=== PATIENT | female | born 1985 | race Caucasian/White ===

== ENCOUNTER 2016-08-22 19:03 | Emergency (ER) | payer MEDICAID ==
[~2016-08-22] VITALS: Ht 152.4 cm; Wt 45.5 kg
[~2016-08-22 19:03] MED LIST: BENA5TAB2 PO; CALC-600 PO; CALC600T PO; CALC600T5 PO; FERR-55 PO; FERR325C PO; HEPARIN SQ; PRED-248 PO; PREN1TAB31 PO; PREN1TAB9 PO; VITAMIN D-2 PO; ZOC10 PO
[2016-08-22 20:30] VITALS: Ht 152.4 cm; Wt 45.5 kg
[2016-08-22] MEDS ORDERED: ACYC800T57 PO (20:42)
[2016-08-22] MEDS ORDERED: HYDR-906 PO (20:42)
[2016-08-22] MEDS ORDERED: HYDR-3011 PO (20:42)
--- NOTE | 2016-08-22 20:46 | ERD ---
ER Documentation Chief Complaint Date/Time DATE: 08/22/16 TIME: 20:44 Chief Complaint rash on upper chest/near right axillary areas since Monday,burning/chills HPI 31-year-old female presents to emergency department for complaints of rash in the right upper chest area radiating to the right axillary artery and right upper back area started 2 days ago. Patient is complaining of pain on affected area and blistering, throbbing pain, burning pain, 6/10 scale, is worse upon touching the area. Patient describes the rashes blisters. Patient took some Tylenol with mild relief. Patient denies any fever or chills. Patient denies any family members with the same type of rash. ROS All systems reviewed and are negative except as per history of present illness. Medications Home Meds Active Scripts Hydrocodone/Acetaminophen ([place] 5-325 Tablet) 1 Each Tablet, 1 TAB PO Q6H Y for SEVERE PAIN LEVEL 7-10, #20 TAB Prov:DORIS BISHOP NP 08/22/16 Hydroxyzine Hcl* (Hydroxyzine Hcl*) 25 Mg Tablet, 25 MG PO Q8H Y for ITCHING, # 30 TAB Prov:DORIS BISHOP NP 08/22/16 Acyclovir* (Zovirax*) 800 Mg Tablet, 800 MG PO 5 TIMES DAILY for 7 Days, TAB Prov:DORIS BISHOP [employer]GER CPA 08/22/16 Reported Medications [Heparin ] No Conflict Check, SQ BID 12/30/13 Calcium Carbonate (CALCIUM) 600 Mg Tablet, 600 MG PO DAILY 10/24/13 Vits W-Ca,Fe,Fa(<1MG) ( #2) 1 Tab Tablet, 1 TAB PO DAILY 10/24/13 Calcium Carbonate (Abel-600) 600 Mg Tablet, 600 MG PO DAILY 09/13/13 Ferrous Sulfate* (Ferrous Sulfate*) 325 Mg Tablet, 325 MG PO DAILY 09/13/13 Vits #90-Iron Fum-FA ( Formula) 1 Each Tablet, 1 EACH PO DAILY 09/13/13 Benazepril Hcl* (Benazepril Hcl*) 5 Mg Tablet, 2.5 MG PO DAILY 01/20/12 Prednisone (Prednisone) 10 Mg Tablet, 40 MG PO DAILY 01/20/12 Calcium (Calcium) 500 Mg Tablet, 500 MG PO BID 01/20/12 [Vitamin D-2] 22747 UNITS TAB No Conflict Check, 00578 UNITS PO MONTHLY 01/20/12 Simvastatin (Simvastatin) 10 Mg Tablet, 10 MG PO HS 01/20/12 Ferrous Sulfate (Iron) 325 Mg Capsr, 325 MG PO BID 01/20/12 Benazepril Hcl* (Benazepril Hcl*) 5 Mg Tablet, 2.5 MG PO DAILY 01/20/12 Prednisone (Prednisone) 10 Mg Tablet, 40 MG PO DAILY 01/20/12 Calcium (Calcium) 500 Mg Tablet, 500 MG PO BID 01/20/12 [Vitamin D-2] 42171 UNITS TAB No Conflict Check, [id number] UNITS PO MONTHLY 01/20/12 Simvastatin (Simvastatin) 10 Mg Tablet, 10 MG PO HS 01/20/12 Allergies Allergies: Coded Allergies: ibuprofen (Unverified Allergy, Unknown, 08/22/16) PMhx/Soc Medical and Surgical Hx: pt denies Medical Hx, pt denies Surgical Hx History of Surgery: No Anesthesia Reaction: No Hx Neurological Disorder: No Hx Respiratory Disorders: No Hx Cardiac Disorders: No Hx Psychiatric Problems: No Hx Miscellaneous Medical Probl: No Hx Alcohol Use: No Hx Substance Use: No Hx Tobacco Use: No FmHx Family History: No coronary disease, No diabetes, No other Physical Exam Vitals Vital Signs Date Time Temp Pulse Resp B/P Pulse Ox O2 Delivery O2 Flow Rate FiO2 08/22/16 20:30 97.8 77 20 128/74 100 Physical Exam GENERAL: The patient is well developed and appropriate for usual state of health, in no apparent distress. CHEST: Clear to auscultation bilaterally. There are no rales, wheezes or rhonchi. HEART: Regular rate and rhythm. No murmurs, clicks, rubs or gallops. No S3 or S4. ABDOMEN: Soft, nontender and nondistended. Good bowel sounds. No rebound or guarding. No gross peritonitis. No gross organomegaly or masses. No Galaviz sign or McBurney point tenderness. BACK: No midline or flank tenderness. EXTREMITIES: Equal pulses bilaterally. There is no peripheral clubbing, cyanosis or edema. No focal swelling or erythema. Full range of motion. Grossly neurovascularly intact. NEURO: Alert and oriented. Cranial nerves 2-12 intact. Motor strength in all 4 extremities with 5/5 strength. Sensation grossly intact. Normal speech and gait. SKIN: Noted vesicular rash on the level on the right T5 dermatome. There is no apparent ecchymosis or petechia. The skin is warm and dry. HEMATOLOGIC AND LYMPHATIC: There is no evidence of excessive bruising or lymphedema. No gross cervical, axillary, or inguinal lymphadenopathy. Procedures/MDM Medical decision making: Patient symptoms with most likely consistent with herpes zoster, shingles. Low suspicion for allergic reaction, coagulopathies. No symptoms of any acute dermatologic emergencies at this time. Patient was given prescription for acyclovir, [place], hydroxyzine, is advised to follow-up with primary care doctor to 3 days for reevaluation of symptoms. Patient was advised to return to emergency department for any worsening symptoms. Departure Diagnosis: Primary Impression: Shingles Herpes zoster complications: without complications Qualified Code: B02.9 - Herpes zoster without complication Condition: Stable Patient Instructions: Shingles (Herpes Zoster) DORIS BISHOP NP Aug 22, 2016 20:46
== END 2016-08-22 20:40 | disposition home or self-care (01) ==
LOC: E/R 19:03
DX: B02.9 Zoster without complications (principal)
CPT/HCPCS: 99282

== ENCOUNTER 2017-07-31 20:09 | Emergency (ER) | END 2017-08-01 01:10 | disposition left against medical advice (07) ==

== ENCOUNTER 2018-06-21 12:56 | Emergency (ER) | END 2018-06-21 15:00 | disposition home or self-care (01) ==

== ENCOUNTER 2018-09-03 16:11 | Emergency (ER) | payer SELFPAY ==
[~2018-09-03] VITALS: Ht 167.6 cm; Wt 40.0 kg
[~2018-09-03 16:11] MED LIST changes: +ACET500C5 PO; +ACYC800T5 PO; +AMOX1TAB10 PO; -BENA5TAB2 PO; +BENA5TAB33 PO; +FLUT16SP17 NASAL; +HYDR-4011 PO; +HYDR-843 PO
[2018-09-03 16:20] VITALS: BP 137/71; PULSE 106; RESP 20; Ht 167.6 cm; Wt 40.0 kg
== END 2018-09-03 20:52 | disposition left against medical advice (07) ==
LOC: FTE 16:11
DX: Z53.21 Procedure and treatment not carried out due to patient leaving prior to being seen by health care provider (principal)